=== PATIENT | male | born 1970 | race Two or more races ===

== ENCOUNTER 2021-06-10 10:00 | Outpatient (CLI) | payer OTHER | END 2021-06-10 10:15 | disposition home or self-care (01) | LOC: PPH VACUNA 10:00 | PROVIDERS: ATTEND Emergency Medicine Pediatric Emergency Medicine | DX: Z23 Encounter for immunization (principal) ==

== ENCOUNTER 2021-12-05 11:21 | Emergency (ER) | payer OTHER ==
[~2021-12-05] VITALS: Ht 175.3 cm; Wt 104.3 kg
[2021-12-05] MEDS ORDERED: AMOX-CLAV 875-1 EACH PO (12:45)
[2021-12-05] MEDS ORDERED: KETO10TA2 PO (12:45)
[2021-12-05] MEDS ORDERED: TYLENOL325 MG (13:04)
== END 2021-12-05 12:52 | disposition home or self-care (01) ==
LOC: ER 11:21
DX: L72.0 Epidermal cyst (principal)